=== PATIENT | female | born 1970 | race Asian ===

== ENCOUNTER 2017-11-19 21:30 | Emergency (ER) | payer MEDICAID ==
[~2017-11-19] VITALS: Ht 160 cm; Wt 56.7 kg
[2017-11-19] MEDS ORDERED: NKM (21:35)
[2017-11-19 21:45] VITALS: BP 123/85
--- NOTE | 2017-11-19 21:51 | Emergency Room Report ---
History of Present Illness General Chief Complaint: Earache Source: Patient, Family Member Present Illness HPI Is a 46-year-old female with chief complaint of left ear pain. Onset for about a week. Initially so his itching and she's been scratching and picking at it. Now more painful today. No fever or chills. Worse with movement. Worse with opening her mouth. Also with pain in her nose. No trauma Allergies: Coded Allergies: No Known Allergies (Unverified , 11/19/17) Patient History Past Medical History: see triage record, old chart reviewed Past Surgical History: none Pertinent Family History: none Social History: Denies: smoking Now: No Immunizations: other Reviewed Nursing Documentation: PMH: Agreed, PSxH: Agreed Nursing Documentation-PMH Hx Cardiac Problems: No - RHEUMATISM Review of Systems Eye: Denies: eye pain, blurred vision ENT: Reports: ear pain, Denies: nose congestion, throat swelling Respiratory: Denies: cough, shortness of breath Cardiovascular: Denies: chest pain, palpitations Gastrointestinal: Denies: abdominal pain, diarrhea, nausea, vomiting Musculoskeletal: Denies: back pain, joint pain Skin: Denies: rash Neurological: Denies: headache, numbness Endocrine: Denies: increased thirst, increased urine Hematologic/Lymphatic: Denies: easy bruising All Other Systems: negative except mentioned in HPI Physical Exam Vital Signs Date Time Temp Pulse Resp B/P (MAP) Pulse Ox O2 Delivery O2 Flow Rate FiO2 11/19/17 21:32 97.7 67 16 123/85 99 Room Air vitals normall Sp02 EP Interpretation: reviewed, normal General Appearance: well appearing, no apparent distress, alert Head: normocephalic, atraumatic Eyes: bilateral eye PERRL, bilateral eye EOMI ENT: hearing grossly normal, normal pharynx, other - Left ear canal: There is a small 2 mm abscess on the medial aspect just inside the canal. TM normal. Neck: full range of motion, supple, no meningismus Respiratory: chest non-tender, lungs clear, normal breath sounds Cardiovascular #1: regular rate, rhythm, no murmur Gastrointestinal: normal bowel sounds, non tender, no mass, no organomegaly, no bruit, non-distended Musculoskeletal: back normal, gait/station normal, normal range of motion Neurologic: alert, oriented x3 Psychiatric: mood/affect normal Skin: warm/dry Procedures Incision and Drainage Incision and Drainage : Consent: Verbal Site: left ear Patient Tolerated: Well Complications: None Progress I place 1% lidocaine with epinephrine on a Q-tip and placed into her ear canal. After 10 minutes, I used an 18-gauge needle and incised the abscess. Using a Q-tip I was able to remove small amount of purulent discharge. No perforation. No trauma. Patient tolerated procedure without a problem. Medical Decision Making Diagnostic Impression: Primary Impression: Abscess of left ear canal ER Course Patient with a superficial abscess of the left ear canal. Most likely MRSA. We 'll discharge home with antibiotics. No deep infection. No perforation. Last Vital Signs Date Time Temp Pulse Resp B/P (MAP) Pulse Ox O2 Delivery O2 Flow Rate FiO2 11/19/17 21:32 97.7 67 16 123/85 99 Room Air Status: improved Disposition: HOME, SELF-CARE Condition: Stable Scripts Trimethoprim/Sulfamethoxazole 160/800* (BACTRIM DS TABLET*) 1 Each Tablet 1 TAB ORAL Q12H, #14 TAB 0 Refills Prov: ARGELIA AGUILERA M.D. 11/19/17 Mupirocin* (MUPIROCIN*) 22 Gm Oint...g. 1 APPLIC TOPIC THREE TIMES A DAY, #22 GM Prov: ARGELIA AGUILERA M.D. 11/19/17 Additional Instructions: Followup your DrDoyle in 7 days. Put antibiotic ointment in ear and nose. Return if symptom worsen. ARGELIA AGUILERA M.D. Nov 19, 2017 21:51
[2017-11-19] MEDS ORDERED: MUPIROCIN22 GM TOPIC (22:09)
[2017-11-19] MEDS ORDERED: BACTRIM DS TAB1 EAC1 ORAL (22:09)
[2017-11-19] MEDS ORDERED: IBUPROFEN600 MG ORAL (22:19)
[2017-11-19 22:30] VITALS: BP 123/85
== END 2017-11-19 22:30 | disposition home or self-care (01) ==
LOC: EMR 21:40
DX: H60.02 Abscess of left external ear (principal)
CPT/HCPCS: 10060; 99283

== ENCOUNTER 2017-11-21 18:00 | Emergency (ER) | payer MEDICAID ==
[~2017-11-21] VITALS: Ht 160 cm; Wt 56.7 kg
[~2017-11-21 18:00] MED LIST: BACTRIM DS TAB1 EAC1 ORAL; IBUPROFEN600 MG ORAL; MUPIROCIN22 GM TOPIC; NKM
[2017-11-21 18:53] VITALS: BP 104/69
[2017-11-21] MEDS ORDERED: oxyCODONE HCL/Acetaminophen 5/325mg ORAL ONE (19:00)
--- NOTE | 2017-11-21 19:07 | Emergency Room Report ---
History of Present Illness General Chief Complaint: Earache Source: Patient Present Illness HPI 46-year-old female presents to the emergency department complaining of 8/10 in severity throbbing pain in the left ear progressive over 2 days after having abscess incised and drained from the left ear canal. Patient reports having muffled hearing out of that ear. She reports some discharge she states she's been taking oral antibiotics as prescribed and has been applying ointment onto her ear was prescribed. Patient denies fevers, chills, neck pain, headache. Patient states that she is beginning to have some tenderness inside the right ear canal is well.Denies CP, Palpitations, LOC, AMS, dizziness, Changes in Vision, Sensation, paresthesias, or a sudden severe headache. Allergies: Coded Allergies: No Known Allergies (Unverified , 11/19/17) Patient History Past Medical History: see triage record Past Surgical History: none Pertinent Family History: none Last Menstrual Period: 11/10/17. Now: No Reviewed Nursing Documentation: PMH: Agreed, PSxH: Agreed Nursing Documentation-PMH Hx Cardiac Problems: No - Rheumatoid Arthritis. Review of Systems All Other Systems: negative except mentioned in HPI Physical Exam Vital Signs Date Time Temp Pulse Resp B/P (MAP) Pulse Ox O2 Delivery O2 Flow Rate FiO2 11/21/17 18:18 98.2 74 19 104/69 98 Room Air Sp02 EP Interpretation: reviewed, normal General Appearance: no apparent distress, alert, GCS 15, non-toxic Head: normocephalic, atraumatic Eyes: bilateral eye normal inspection, bilateral eye PERRL ENT: hearing grossly normal - pt. able to hear out of left ear to volume of normal conversation. , normal pharynx, no angioedema, normal voice, uvula midline, moist mucus membranes, other - Left ear Canals is erythematous and macerated in appearance with moderate purulent drainage noted, tragal tenderness. no TM involvement, no evidence of mastoiditis or preauricular LAD on PE. there is small canal abrasion noted with scab noted in the right ear canal. Neck: full range of motion, no meningismus, no bony tend, supple/symm/no masses Respiratory: lungs clear, normal breath sounds, speaking full sentences Cardiovascular #1: regular rate, rhythm Musculoskeletal: back normal, gait/station normal, normal range of motion Neurologic: alert, oriented x3, responsive, motor strength/tone normal, sensory intact, speech normal Skin: normal color, no rash, warm/dry, well hydrated Lymphatic: no adenopathy Medical Decision Making PA Attestation Dr. Wisdom is my supervising Physician whom patient management has been discussed with. Diagnostic Impression: Primary Impression: Otitis externa of left ear Qualified Codes: H60.502 - Unspecified acute noninfective otitis externa, left ear ER Course 46-year-old female presents to the emergency department complaining of 8/10 in severity throbbing pain in the left ear progressive over 2 days after having abscess incised and drained from the left ear canal. Patient reports having muffled hearing out of that ear. She reports some discharge she states she's been taking oral antibiotics as prescribed and has been applying ointment onto her ear was prescribed. Patient denies fevers, chills, neck pain, headache. Patient states that she is beginning to have some tenderness inside the right ear canal is well.Denies CP, Palpitations, LOC, AMS, dizziness, Changes in Vision, Sensation, paresthesias, or a sudden severe headache. Ddx considered but are not limited to OM, OE, mastoiditis, TM perforation, FB Vital signs: are WNL, pt. is afebrile H&PE are most consistent with otitis externa ORDERS: none required at this time, the diagnosis is clinical -OTOSCOPY: Left ear Canals is erythematous and macerated in appearance with moderate purulent drainage noted, tragal tenderness. no TM involvement, no evidence of mastoiditis or preauricular LAD on PE. there is small canal abrasion noted with scab noted in the right ear canal. ED INTERVENTIONS: -Percocet PO - D/w pt. need for ENT follow up. and that She will be started on Otic abx to be taken simultaneously with previously prescribed oral abx. d/w pt. do d/c all Q-tip use. DISCHARGE: At this time pt. is stable for d/c to home. With Otic ABX. Will provide printed patient care instructions, and any necessary prescriptions. Care plan and follow up instructions have been discussed with the patient prior to discharge. Last Vital Signs Date Time Temp Pulse Resp B/P (MAP) Pulse Ox O2 Delivery O2 Flow Rate FiO2 12/25/17 18:53 98.2 66 19 104/69 98 Room Air Disposition: HOME, SELF-CARE Condition: Stable Scripts Acetaminophen With Codeine (T#3) (TYLENOL #3 TAB*) Y Tab 1 TAB ORAL Q6HR Y for For Pain, #10 TAB Prov: Amy Muller 11/21/17 [auralgan generic] No Conflict Check 2 DROP OT QID Y for For Pain, #15 ML Prov: Amy Muller 11/21/17 Ofloxacin (OFLOXACIN) 5 Ml Drops 10 DROP OT DAILY for 10 Days, #5 ML Prov: Amy Muller 11/21/17 Referrals: NOT CHOSEN IPA/MD,REFERRING (PCP) Patient Instructions: Otitis Externa, [id number] Additional Instructions: Take medications as directed. Follow up with a Primary Care Provider in 3-5 days, even if your symptoms have resolved. --Please review list of primary care clinics, if you do not already have a primary care provider Return sooner to ED if new symptoms occur, or current symptoms become worse. Do not drink alcohol, drive, or operate heavy machinery while taking Tylenol # 3 as this may cause drowsiness. - Please note that this Emergency Department Report was dictated using ev-socialum nurse technology software, occasionally this can lead to erroneous entry secondary to interpretation by the dictation equipment. Amy Muller Nov 21, 2017 19:07
[2017-11-21] MEDS ORDERED: auralgan generic OT (19:13)
[2017-11-21] MEDS ORDERED: OFLOXACIN5 ML OT (19:13)
[2017-11-21] MEDS ORDERED: ACETAMINOPHEN-1 EAC1 ORAL (19:13)
[2017-11-21 19:35] VITALS: BP 104/69
== END 2017-11-21 19:35 | disposition home or self-care (01) ==
LOC: EMR 18:56
DX: H60.502 Unspecified acute noninfective otitis externa, left ear (principal); M06.9 Rheumatoid arthritis, unspecified
CPT/HCPCS: 99283

== ENCOUNTER → 2018-01-12 | Emergency (ER) | payer MEDICAID ==
[~2018-01-12] VITALS: Ht 157.5 cm; Wt 54.4 kg
[~2018-01-12] MED LIST changes: +ACETAMINOPHEN-1 EAC1 ORAL; +HYDROCODON-ACE1 EA15 ORAL; +Lidocaine 1% Plain 30 ml INJ ONE; +OFLOXACIN5 ML OT; +auralgan generic OT
[2018-01-12 03:48] VITALS: BP 126/85
--- NOTE | 2018-01-12 04:05 | Emergency Room Report ---
History of Present Illness General Chief Complaint: Skin Rash/Abscess Source: Patient, Medical Record Present Illness HPI This is a 47-year-old female with no past medical history. She presents with chief complaint of abscess to the back her head. Onset for last 2 days. No drainage. Pain with palpation. No fever or chills. No nausea no vomiting. No other injury. Allergies: Coded Allergies: No Known Allergies (Unverified , 11/19/17) Patient History Past Medical History: see triage record, old chart reviewed Past Surgical History: none Pertinent Family History: none Social History: Denies: smoking Last Menstrual Period: Now: No Immunizations: other Reviewed Nursing Documentation: PMH: Agreed, PSxH: Agreed Nursing Documentation-PMH Hx Cardiac Problems: No - Rheumatoid Arthritis. Review of Systems Eye: Denies: eye pain, blurred vision ENT: Denies: ear pain, nose congestion, throat swelling Respiratory: Denies: cough, shortness of breath Cardiovascular: Denies: chest pain, palpitations Gastrointestinal: Denies: abdominal pain, diarrhea, nausea, vomiting Musculoskeletal: Denies: back pain, joint pain Skin: Denies: rash Neurological: Denies: headache, numbness Endocrine: Denies: increased thirst, increased urine Hematologic/Lymphatic: Denies: easy bruising All Other Systems: negative except mentioned in HPI Physical Exam Vital Signs Date Time Temp Pulse Resp B/P (MAP) Pulse Ox O2 Delivery O2 Flow Rate FiO2 01/12/18 03:37 97.8 88 16 126/85 95 Room Air 97.9 vitals normal Sp02 EP Interpretation: reviewed, normal General Appearance: well appearing, no apparent distress, alert Head: normocephalic, other - 3 cm indurated area to the nape of the neck on the left side. This is a just above the hairline. Eyes: bilateral eye PERRL, bilateral eye EOMI ENT: hearing grossly normal, normal pharynx Neck: full range of motion, supple, no meningismus Respiratory: chest non-tender, lungs clear, normal breath sounds Cardiovascular #1: regular rate, rhythm, no murmur Gastrointestinal: normal bowel sounds, non tender, no mass, no organomegaly, no bruit, non-distended Musculoskeletal: back normal, gait/station normal, normal range of motion Psychiatric: mood/affect normal Skin: warm/dry Procedures Incision and Drainage Incision and Drainage : Consent: Verbal Site: Scalp Blade Size: 11 I & D Procedure: betadine prep, sterile drapes applied, gauze wick placed Wound Location: head Anesthesia: 1% Lidocaine Volume Anesthetic (ccs): 3 Patient Tolerated: Well Complications: None Medical Decision Making Diagnostic Impression: Primary Impression: Abscess ER Course Patient present with a scalp abscess. No evidence of sebaceous cyst. I&D. We' ll discharge home. Last Vital Signs Date Time Temp Pulse Resp B/P (MAP) Pulse Ox O2 Delivery O2 Flow Rate FiO2 01/12/18 03:48 97.9 16 126/85 95 Room Air 97.9 01/12/18 03:37 88 Status: improved Disposition: HOME, SELF-CARE Condition: Stable Scripts Ibuprofen* (MOTRIN*) 600 Mg Tablet 600 MG ORAL THREE TIMES A DAY, #30 TAB 0 Refills Prov: ARGELIA AGUILERA M.D. 01/12/18 Trimethoprim/Sulfamethoxazole 160/800* (BACTRIM DS TABLET*) 1 Each Tablet 1 TAB ORAL Q12H, #14 TAB 0 Refills Prov: ARGELIA AGUILERA M.D. 01/12/18 Patient Instructions: Abscess Additional Instructions: Return in 2 days for a recheck. Return if worse. ARGELIA AGUILERA M.D. Jan 12, 2018 04:05
[2018-01-12 04:19] VITALS: BP 126/85
== END | disposition home or self-care (01) ==
LOC: EMR 03:45
DX: L02.811 Cutaneous abscess of head [any part, except face] (principal)
CPT/HCPCS: 10060; 99283; J2001

== ENCOUNTER 2018-01-13 23:48 | Emergency (ER) | payer MEDICAID ==
[~2018-01-13] VITALS: Ht 157.5 cm; Wt 56.2 kg
[~2018-01-13 23:48] MED LIST changes: -HYDROCODON-ACE1 EA15 ORAL; -Lidocaine 1% Plain 30 ml INJ ONE
[2018-01-14 00:01] VITALS: BP 131/87
[2018-01-14] MEDS ORDERED: HYDROCODON-ACE1 EA15 ORAL (01:08)
--- NOTE | 2018-01-14 01:09 | Emergency Room Report ---
History of Present Illness General Chief Complaint: Wound Recheck/Suture Removal Source: Patient Present Illness HPI This is a 47-year-old Chinese female whom I saw couple days ago for abscess to the scalp. She came back for wound check. Is still draining. She has not taken a shower yet. Throbbing pain in that area. No fever chills but no nausea no vomiting. Allergies: Coded Allergies: No Known Allergies (Unverified , 11/19/17) Patient History Past Medical History: see triage record, old chart reviewed Past Surgical History: none Pertinent Family History: none Social History: Denies: smoking Last Menstrual Period: jan 10 Now: No Immunizations: other Reviewed Nursing Documentation: PMH: Agreed, PSxH: Agreed Nursing Documentation-PMH Hx Cardiac Problems: No - Rheumatoid Arthritis. Review of Systems Eye: Denies: eye pain, blurred vision ENT: Denies: ear pain, nose congestion, throat swelling Respiratory: Denies: cough, shortness of breath Cardiovascular: Denies: chest pain, palpitations Gastrointestinal: Denies: abdominal pain, diarrhea, nausea, vomiting Musculoskeletal: Denies: back pain, joint pain Skin: Denies: rash Neurological: Denies: headache, numbness Endocrine: Denies: increased thirst, increased urine Hematologic/Lymphatic: Denies: easy bruising All Other Systems: negative except mentioned in HPI Physical Exam Vital Signs Date Time Temp Pulse Resp B/P (MAP) Pulse Ox O2 Delivery O2 Flow Rate FiO2 01/13/18 23:53 97.5 64 18 131/87 99 Room Air 97.5 vitals normal Sp02 EP Interpretation: reviewed, normal General Appearance: well appearing, no apparent distress, alert Head: normocephalic, atraumatic, other - Over the nape of the neck and scalp, the wound still has drainage and induration. Packing still intact. Tender to palpation. Eyes: bilateral eye PERRL, bilateral eye EOMI ENT: hearing grossly normal, normal pharynx Neck: full range of motion, supple, no meningismus Respiratory: chest non-tender, lungs clear, normal breath sounds Cardiovascular #1: regular rate, rhythm, no murmur Gastrointestinal: normal bowel sounds, non tender, no mass, no organomegaly, no bruit, non-distended Musculoskeletal: back normal, gait/station normal, normal range of motion Psychiatric: mood/affect normal Skin: warm/dry Procedures Additional Procedure Procedure Narrative Procedure: Packing removal Indication: Followup on abscess with packing Description: I cleaned the area with Betadine. I cleaned the scab over the hair. I removed the packing. Patient tolerated procedure without a problem. There was still small amount purulent discharge over the right side of the wound. Local anesthetic 1% lidocaine. Using a Nohemi forcep but open up the indurated area and more pus came out. It was irrigated. Patient tolerated procedure without any problem. Medical Decision Making Diagnostic Impression: Primary Impression: Abscess ER Course Patient with a scalp abscess. Per the 90 to remove more pus. Patient tolerated seizure without a problem. No necrotizing fasciitis. Last Vital Signs Date Time Temp Pulse Resp B/P (MAP) Pulse Ox O2 Delivery O2 Flow Rate FiO2 01/14/18 00:01 97.5 104 18 131/87 99 Room Air 97.5 Status: improved Disposition: HOME, SELF-CARE Condition: Stable Scripts Hydrocodone/Acetaminophen 5-325* (HYDROCODONE/ACETAMINOPHEN 5-325*) 1 Each Tablet 1 TAB ORAL Q6H Y for For Pain, #10 TAB 0 Refills Prov: ARGELIA AGUILERA M.D. 01/14/18 Patient Instructions: Wound Check Additional Instructions: Followup your Dr. in 2-3 days. Return if symptom worsen. Continue with antibiotics. You may shower. ARGELIA AGUILERA M.D. Jan 14, 2018 01:08
[2018-01-14] MEDS ORDERED: Norco 5mg/325mg tab ORAL ONE (01:15)
[2018-01-14 01:25] VITALS: BP 131/87
== END 2018-01-14 01:25 | disposition home or self-care (01) ==
LOC: EMR 23:58
DX: L02.811 Cutaneous abscess of head [any part, except face] (principal); Z48.03 Encounter for change or removal of drains; M06.9 Rheumatoid arthritis, unspecified
CPT/HCPCS: 99283